=== PATIENT | female | born 1955 | race Caucasian/White ===

== ENCOUNTER 2017-03-17 05:35 | Day surgery (SDC) | payer OTHER ==
[~2017-03-17 05:35] MED LIST: CYMBALTA60 MG PO; METFORMIN HCL500 MG PO; MICARDIS40 MG PO
[2017-03-17] MEDS ORDERED: NAPROXEN SODIU550 M1 PO (09:19)
== END 2017-03-17 15:05 | disposition home or self-care (01) ==
LOC: CIR.AMB 05:35
DX: N84.0 Polyp of corpus uteri (principal)